=== PATIENT | female | born 1980 | race Caucasian/White ===

== ENCOUNTER 2019-02-09 13:15 | Emergency (ER) | payer SELFPAY ==
[2019-02-09] VITALS (8 sets, daily range): BP systolic 101–138; BP diastolic 65–83; PULSE 76–116; RESP 14–16; TEMP 36.6–37.5; O2SAT 97–99; BMI 22.5
--- NOTE | 2019-02-09 13:40 | CM.ED ---
Social Work Collaborating with Dr. Gill, Crisis to be consulted as patient is private pay. Algology Teacher to contact crisis when patient is medically cleared. Ana Zamora MSW, ILIR
--- NOTE | 2019-02-09 13:46 | EKG12_ITS ---
Test Reason : MHC Blood Pressure : / mmHG Vent. Rate : 093 BPM Atrial Rate : 093 BPM P-R Int : 158 ms QRS Dur : 084 ms QT Int : 338 ms P-R-T Axes : 075 084 064 degrees QTc Int : 420 ms Normal sinus rhythm Normal ECG Confirmed by ODIN GAGNON, CONSUELO ([id number]), film and video editor EVANGELIST WEEKS ([id number]) on 02/11/2019 9:00:23 AM Referred By: SHELDON Confirmed By:CONSUELO NEWBY MD
[2019-02-09 14:03] LABS: Internal QC Validated? YES +Cl - CLEAR BKGD; Pregnancy, Serum, hCG Quali. NEGATIVE Negative
[2019-02-09 14:09] LABS: Absolute Lymphocyte Count 1.45 X10^3/uL (0.83-4.51); Absolute Neutrophil Count 4.9 X10^3/uL (2.0-7.7); Basophil# 0.03 X10^3/uL; Basophil% 0.4 % (0-1); Eosinophil# 0.06 X10^3/uL; Eosinophils% 0.8 % (0-5); Hematocrit 46.9 % (37-47); Hemoglobin 15.7 g/dL (12.0-15.0); Lymphocyte # 1.45 X10^3/ul (4.0); Lymphocyte % 19.9 % (19-41); Mean Corp Hgb Conc 33.5 g/dL (32-36); Mean Corpuscular Hgb 31.8 pg (27.0-32.0); Mean Corpuscular Volume 94.9 fL (81-99); Mean Platelet Vol. 10.2 fl (6.2-12.0); Monocyte# 0.83 X10^3/uL; Monocyte% 11.4 % (0-10); NRBC Flagged by Analyzer 0 % (0-5); Neutrophil # 4.88 X10^3/uL (2.7-7.7); Neutrophil % 67.1 % (47-70); Platelet Count 326 K/mm3 (150-450); RBC Distribution Width CV 12.2 % (11.6-14.6); RBC Distribution Width SD 43.3 fl (35.1-43.9); Red Blood Count 4.94 M/mm3 (4.2-5.4); White Blood Count 7.3 K/mm3 (4.4-11.0)
[2019-02-09 14:18] LABS: AST(SGOT) 14 U/L (15-37); Alanine Aminotransfer ALT/SGPT 22 U/L (13-56); Albumin, Serum 4.2 g/dL (3.2-5.0); Alkaline Phosphatase 72 U/L (45-117); Anion Gap 4 (5-15); BUN 4 mg/dL (7-18); BUN/Creat Ratio 4.4 RATIO (10-20); Calcium,Total 9.2 mg/dL (8.5-10.1); Chloride 103 mmol/L (98-107); EST Glomerular Filtration Rate 75 mL/min (>60); Est Glom Filt Rate - Afr Amer 91 mL/min (>60); Globulin 4.3 g/dL (2.2-4.2); Glucose 120 mg/dL (74-106); Potassium 3.6 mmol/L (3.5-5.1); Protein, Total 8.5 g/dL (6.4-8.2); Sodium Level 137 mmol/L (136-145); Thyroid Stim Hormone (TSH) 0.96 uIU/mL (0.358-3.74)
[2019-02-09 14:28] LABS: Amphetamine Urine VISTA POSITIVE (<1000 ng/mL); Barbiturate Urine VISTA NEGATIVE (< 200 ng/mL); Benzodiazepine Urine VISTA POSITIVE (< 200 ng/mL); Cocaine Urine VISTA NEGATIVE (< 300 ng/mL); Ecstacy Urine VISTA NEGATIVE (< 500 ng/mL); Methadone Urine VISTA NEGATIVE (< 300 ng/mL); PCP Urine VISTA NEGATIVE (< 25 ng/mL); THC Urine VISTA POSITIVE (< 50 ng/mL); Vista UDS pH Range 6
--- NOTE | 2019-02-09 14:33 | ED.RN ---
CALLED COUNSELING CENTER; [facility]LY WITH CRISIS IS LEARNING CENTER COORDINATOR
[2019-02-09 15:23] LABS: Squamous Epithelial Cells - UA 0 SEEN /hpf (5-10)
[2019-02-09 15:30] LABS: Color, Urine Yellow (Yellow); Glucose, Dipstick Normal (Normal); Ketone-Dipstick 5 mg/dl (Negative); Leukocyte Esterase-Dipstick 25 /ul (Negative); Nitrite-Dipstick Negative (Negative); Occult Blood-Urine 25 /ul (Negative); Protein-Dipstick 500 mg/dl (Negative); Urine Bilirubin Dipstick Negative (Negative); Urine Clarity Clear (Clear); Urine Urobilinogen 1 mg/dl (Normal)
--- NOTE | 2019-02-09 15:30 | ED.VISSUMM ---
- ER Visit Summary Date of Service: 02/09/19 Chief Complaint: Suicidal ideation History of Present Illness: The patient is a 38 F who has a history of depression. She is been taking Effexor and seeing a counselor at [facility]. She states she has not seen a counselor for several weeks as her has been fishing and passing a kidney stone. She states that she has been having difficulty sleeping and so she took some of his Valium. She states that her depression seems to be getting worse. She has a very strained relationship with her which has in turn strained her relationship with her daughter who is 14. She has a son who is 12 which she states is my rock that keeps me from harming myself. Today she texted her daughter because there was concern about how she felt about her mom. She mentioned her feelings about potentially going to harm herself. confronted her she tried to take a knife and cut her wrist. When that failed she tried to take some pills and the took the pills out of her mouth. Please were called. She had a overdose on medications in April but was not hospitalized at that time. It was after that that she went to counseling Physical Examination: Afebrile vital signs stable Gen: Well-nourished well-developed Head: Normocephalic atraumatic Eyes: Perrl EOMI ENT: TMs clear no rhinorrhea moist mucous membranes Neck: Supple no lymphadenopathy no JVD nontender CVS: Regular rate rhythm no murmurs normal S1-S2 Respiratory: No distress clear to auscultation bilaterally chest nontender Abdomen: Soft nontender nondistended normal bowel sounds no masses Back: Nontender Extremity: Nontender no edema Skin: Normal color no rash Neuro: alert orientated ?3 CN II-XII intact normal strength sensation reflexes gait cerebellar Psych: Admits to feeling depressed and despondent. She admits to suicidal thoughts and these gestures/attempts. Test Results: Psychiatric screening labs were obtained. Toxicology positive for benzodiazepines and amphetamines Emergency Department Course and Treatment: I will asked crisis to evaluate the patient. Disposition will be made after that Impression: 1. Depression 2. Suicidal ideation This note was generated with [employer]ink (air [employer])ation software. It may contain incorrect words, spelling, and punctuation that were not noted in review of the chart prior to signing ED Disposition - Plan for ED Patient: Referrals: Care Physician,No Primary [Primary Care Provider] -
[2019-02-09 15:42] LABS: Bacteria 1+ /hpf (None Seen); Mucous, Urine 2+ /hpf (<or=2+); Red Blood Cells-Urine 0-5 SEEN /hpf (0-5); White Blood Cells 0-5 SEEN /hpf (0-5)
--- NOTE | 2019-02-09 16:58 | ED.RN ---
PT REQUEST THE IS TO BE NOTIFIED OF WHERE SHE WILL BE TRANSFERRED TO.
--- NOTE | 2019-02-09 17:01 | ED.RN ---
REFERRED TO [facility]
== END 2019-02-09 21:58 ==
LOC: ED 14:01
PROVIDERS: Emergency Provider Emergency Medicine
DX: F32.9 Major depressive disorder, single episode, unspecified (principal); R45.851 Suicidal ideations; Z91.19 Patient's noncompliance with other medical treatment and regimen; Z79.899 Other long term (current) drug therapy
CPT/HCPCS: 36415; 80053; 80307; 80320; 81001; 84443; 84703; 85025; 93005; 99284; G0480